=== PATIENT | female | born 1935 | race Caucasian/White ===

== ENCOUNTER 2022-01-23 17:33 | Inpatient (IN) | payer MEDICARE, BC ==
[~2022-01-23] VITALS: Ht 160 cm; Wt 51.7 kg
--- NOTE | 2022-01-23 17:50 | NUR ---
Dr Ruby at the bedside for MSE. Code stroke activated.
--- NOTE | 2022-01-23 17:58 | NUR ---
Accompained pt to Ct scan w/ contineous monitoring.
[2022-01-23 18:02] LABS: HEMATOCRIT 37.6 % (31.2-41.9); MEAN CORPUSCULAR VOLUME 95.3 fL (75.5-95.3); PLATELET COUNT (AUTO) 264 K/uL (179-408)
[2022-01-23] MEDS ORDERED: DOXY50CA2 PO (18:03)
[2022-01-23] MEDS ORDERED: LOSA50TA39 PO (18:03)
--- NOTE | 2022-01-23 18:07 | NUR ---
Pt back from CT scan, placed on monitor.
--- NOTE | 2022-01-23 18:15 | NUR ---
Dr Ruby made aware of elevated BP.
[2022-01-23 18:16] LABS: BILIRUBIN,TOTAL 0.6 mg/dL (0.2-1.0); CREATININE 1.1 mg/dL (0.6-1.3); POTASSIUM 3.3 mmol/L (3.5-5.1); TOTAL PROTEIN, SERUM 8.2 g/dL (6.4-8.2)
--- NOTE | 2022-01-23 19:05 | NUR ---
Change of shift report from Jessica HARLEY
--- NOTE | 2022-01-23 19:10 | NUR ---
Patient is a/ox4, NAD noted. Patient is able to walk with steady gait
--- NOTE | 2022-01-23 19:12 | NUR ---
Dr Pa at bedside, MSE in progress
[2022-01-23] MEDS ORDERED: MECLIZINE HCL 25 MG TABLET ONE (19:28)
[2022-01-23] MEDS ORDERED: ASPIRIN 325 MG TABLET ONE (19:28)
[2022-01-23] MEDS ORDERED: MECLIZINE HCL 25 MG TABLET PO ONE (19:30)
[2022-01-23] MEDS ORDERED: ASPIRIN 325 MG TABLET PO ONE (19:30)
--- NOTE | 2022-01-23 20:00 | NUR ---
Patient has been accepted by [facility]
[2022-01-23 20:34] LABS: *BILIRUBIN,URIN NEGATIVE (NEGATIVE); *BLOOD, URINE NEGATIVE (NEGATIVE); *CLARITY,URINE CLEAR (CLEAR); *COLOR,URINE LIGHT YELLOW (YELLOW); *KETONES,URINE NEGATIVE (NEGATIVE); *UROBILINOGEN,URINE 0.2 E.U./dl (NORMAL); LEUKOCYTE ESTERASE ,URINE NEGATIVE (NEGATIVE); NITRITE, URINE NEGATIVE (NEGATIVE); PH,URINE 6.5 (5.0-8.0); UGLUCOSE NEGATIVE (NEGATIVE)
--- NOTE | 2022-01-23 20:59 | NUR ---
report given to Grace HARLEY
--- NOTE | 2022-01-23 21:00 | NUR ---
Patient will be admitted to TELE room 306 under [facility] Urias DNP
[2022-01-23 21:40] VITALS: BP 148/81
[2022-01-23] MEDS ORDERED: MAGNESIUM HYDROXIDE 30 ML LIQUID UDC PO PRN (21:45)
[2022-01-23] MEDS ORDERED: ONDANSETRON 4 MG/2 ML VIAL IV PRN (21:45)
[2022-01-23] MEDS ORDERED: REMEDY ESSENTIAL ZINC PASTE 113 GM TP PRN (21:45)
[2022-01-23] MEDS ORDERED: hydrALAZINE HCL 50 MG TABLET PO PRN (21:45)
[2022-01-23] MEDS ORDERED: ACETAMINOPHEN 325 MG TABLET PO PRN (21:45)
[2022-01-23] MEDS ORDERED: AMLODIPINE 10 MG TABLET PO SCH (21:45)
--- NOTE | 2022-01-23 21:45 | NUR ---
Admitted from ER via w/c, alert and oriented x 4. In no acute distress, denies chest pain. RFA heplock intact and patent. Sinus rhythm on tele with HR 87bpm. Routine admission care rendered, oriented to room, BR, TV and call light. Care plan initiated. Call light placed within easy reach.
[2022-01-23] MEDS ORDERED: POTASSIUM CHLORIDE 20 MEQ TAB.PRT.SR PO ONE (22:00)
[2022-01-23] MEDS: DIAZEPAM 2 MG TABLET PO PRN (23:18)
[2022-01-24] VITALS: BP 119/67
[2022-01-24 04:00] VITALS: BP 104/60
[2022-01-24 05:55] LABS: ALANINE AMINOTRANSFERASE 32 U/L (14-59); ALKALINE PHOSPHATASE 54 U/L (50-136); ASPARTATE AMINOTRANSFERASE 19 U/L (15-37); BILIRUBIN,TOTAL 0.4 mg/dL (0.2-1.0); CARBON DIOXIDE 28 mmol/L (21-32); CHLORIDE 110 mmol/L (98-107); CREATININE 0.9 mg/dL (0.6-1.3); GLUCOSE 98 mg/dL (74-106); MAGNESIUM 2.1 mg/dL (1.8-2.4); PHOSPHOROUS 3.8 mg/dL (2.5-4.9); TOTAL PROTEIN, SERUM 6.3 g/dL (6.4-8.2); UREA NITROGEN, BLOOD 17 mg/dL (7-18)
[2022-01-24 05:56] LABS: CHOLESTEROL 173 mg/dL (<200); HDL CHOLESTEROL 69 mg/dL (40-60); TRIGLYCERIDES 104 MG/DL (30-150)
[2022-01-24 05:58] LABS: THYROID STIMULATING HORMONE 1.169 mIU/mL (0.358-3.740)
[2022-01-24 06:15] LABS: HEMATOCRIT 33.1 % (31.2-41.9); MEAN CORPUSCULAR HEMOGLOBIN 32.8 uug (24.7-32.8); MEAN CORPUSCULAR VOLUME 98.1 fL (75.5-95.3); PLATELET COUNT (AUTO) 227 K/uL (179-408)
[2022-01-24] MEDS ORDERED: IV NORMAL SALINE 250 ML IV ONE (08:42)
[2022-01-24] MEDS ORDERED: SWABABLE VALVE TRANSFER SET EA MC ONE (08:42)
[2022-01-24] MEDS ORDERED: IOHEXOL 350 100 ML INFUS..BTL ONE (08:42)
[2022-01-24] MEDS ORDERED: LOSARTAN POTASSIUM 50 MG TABLET PO SCH (09:00)
[2022-01-24] MEDS: LOSARTAN POTASSIUM 50 MG TABLET PO SCH (10:01)
[2022-01-24 11:30] VITALS: BP 130/76
[2022-01-24 15:39] VITALS: BP 125/67
[2022-01-24 20:00] VITALS: BP 129/73
[2022-01-24] MEDS: DIAZEPAM 2 MG TABLET PO PRN (20:26)
[2022-01-25] VITALS: BP 120/60
[2022-01-25 04:00] VITALS: BP 145/79
[2022-01-25 07:24] LABS: HEMATOCRIT 33.9 % (31.2-41.9); MEAN CORPUSCULAR HEMOGLOBIN 32.3 uug (24.7-32.8); MEAN CORPUSCULAR VOLUME 95.4 fL (75.5-95.3); PLATELET COUNT (AUTO) 219 K/uL (179-408)
--- NOTE | 2022-01-25 07:30 | NUR ---
Received pt. alert and oriented. Resting in bed. No c/o nausea and vomiting. Orthostatic blood pressure WNL. SR on monitor.
[2022-01-25 07:38] LABS: CREATININE 1.1 mg/dL (0.6-1.3); MAGNESIUM 1.9 mg/dL (1.8-2.4); PHOSPHOROUS 4.1 mg/dL (2.5-4.9); POTASSIUM 4.1 mmol/L (3.5-5.1)
[2022-01-25] MEDS ORDERED: LOSARTAN POTASSIUM 50 MG TABLET PO SCH (09:00)
[2022-01-25] MEDS: LOSARTAN POTASSIUM 50 MG TABLET PO SCH (09:49)
--- NOTE | 2022-01-25 10:00 | NUR ---
Seen by hospitalist and plan to discharge home and follow up with PC
[2022-01-25 10:25] VITALS: BP 127/76
[2022-01-25 10:26] VITALS: BP 131/74
[2022-01-25 10:27] VITALS: BP 141/88
[2022-01-25] MEDS ORDERED: MAGNESIUM OXIDE 400 MG TABLET PO ONE (11:00)
[2022-01-25 11:29] VITALS: BP 148/81
[2022-01-25] MEDS ORDERED: AMLO5TAB4 PO (14:49)
--- NOTE | 2022-01-25 14:49 | NUR ---
pt. was discharged home and noted to be stable upon the discharge. Will follow up with Primary care in one to two weeks.
== END 2022-01-25 13:45 | disposition home or self-care (01) | DRG 305 ==
LOC: ER 17:33 → TELE3 20:00
PROVIDERS: ADMIT Nurse Practitioner Acute Care; ATTEND Nurse Practitioner Acute Care
DX: I16.1 Hypertensive emergency (principal); D46.9 Myelodysplastic syndrome, unspecified; I10 Essential (primary) hypertension; Z90.710 Acquired absence of both cervix and uterus; Z20.822 Contact with and (suspected) exposure to COVID-19; R42 Dizziness and giddiness; R93.1 Abnormal findings on diagnostic imaging of heart and coronary circulation
CPT/HCPCS: 36415; 70450; 70496; 71045; 83735; 84100; 84443; 84484; 85025; 93005; 93307; A4663; G0378; J8597; Q9967